=== PATIENT | male | born 1960 | race Caucasian/White ===

== ENCOUNTER 2020-02-13 13:52 | Emergency (ER) | payer OTHER, SELFPAY ==
[~2020-02-13] VITALS: Ht 157.5 cm; Wt 65.8 kg
[2020-02-13 15:10] LABS: BASOPHIL % 0.2 % (0-2); PLATELET COUNT 145 x10^3mcL (130-400); RED CELL DISTRIBUTION WIDTH 13.3 % (11.5-14.5)
[2020-02-13 15:18] LABS: CALCIUM 8.8 mg/dL (8.5-10.1); CARBON DIOXIDE 26.2 mmol/L (21-32); CHLORIDE SERUM 99 mmol/L (98-107); GFR1 > 60 mL/min; GLUCOSE SERUM 221 mg/dL (74-106); POTASSIUM SERUM 3.9 mmol/L (3.5-5.1); SODIUM SERUM 135 mmol/L (136-145)
[2020-02-13 15:20] LABS: UA SPECIFIC GRAVITY 1.025 (1.005-1.035); microscopic required? YES; urine erythrocyte NEGATIVE (NEGATIVE)
[2020-02-13 15:31] LABS: ALBUMIN 3.3 g/dL (3.4-5.0); ALKALINE PHOSPHATASE 104 U/L (46-116); ALT/SGPT 45 U/L (16-63); AST/SGOT 51 U/L (15-37); BILIRUBIN TOTAL 0.6 mg/dL (0.20-1.00); C REACTIVE PROTEIN 6.2 mg/dL (<=0.9); CHOLESTEROL 128 mg/dL (<200); HDL CHOLESTEROL 36 mg/dL (40-60); LACTIC DEHYDROGENASE (LDH) 513 U/L (100-190); LIPASE 203 IU/L (73-393); TOTAL PROTEIN, SERUM 7.3 g/dL (6.4-8.2)
[2020-02-13 15:58] LABS: AMPHETAMINE QUAL UR NONE DETECTED (See below)
[2020-02-13 16:44] VITALS: BP 114/85
== END 2020-02-13 16:39 | disposition home or self-care (01) ==
LOC: ED 13:52
PROVIDERS: Emergency Medicine
DX: U07.1 COVID-19 (principal); J12.89 Other viral pneumonia; I10 Essential (primary) hypertension; E11.9 Type 2 diabetes mellitus without complications; E78.00 Pure hypercholesterolemia, unspecified; Z98.890 Other specified postprocedural states
CPT/HCPCS: 36600; 83880; 85378; 87804

== ENCOUNTER 2020-02-14 16:43 | Inpatient (IN) | payer OTHER, SELFPAY ==
[~2020-02-14] VITALS: Ht 165.1 cm; Wt 67.6 kg
[2020-02-14 16:46] VITALS: Ht 165.1 cm; Wt 67.6 kg
--- NOTE | 2020-02-14 18:45 | NUR ---
FIRST CONTACT WITH PT. ESCORTED FROM OUT DOORS TO ROOM 8. APPARANTLY HAD LOW O2 SAT LEVELS AT HOME WITH HOME O2 SAT DEVICE. WAS ADVISED FROM PCP IF IT WAS LOW TO SEEK MEDICAL ATTN.
[2020-02-14 19:16] LABS: BASOPHIL % 0.1 % (0-2); PLATELET COUNT 182 x10^3mcL (130-400); RED CELL DISTRIBUTION WIDTH 12.9 % (11.5-14.5)
[2020-02-14 19:17] LABS: CARBON DIOXIDE 25.8 mmol/L (21-32); CHLORIDE SERUM 98 mmol/L (98-107); CREATININE SERUM 1.1 mg/dL (0.7-1.3); GFR1 > 60 mL/min; GLUCOSE SERUM 259 mg/dL (74-106); POTASSIUM SERUM 4.5 mmol/L (3.5-5.1); SODIUM SERUM 133 mmol/L (136-145)
[2020-02-14 19:21] LABS: ALKALINE PHOSPHATASE 101 U/L (46-116); ALT/SGPT 50 U/L (16-63); AST/SGOT 54 U/L (15-37); BILIRUBIN TOTAL 0.92 mg/dL (0.20-1.00); C REACTIVE PROTEIN 9.9 mg/dL (<=0.9); LACTIC DEHYDROGENASE (LDH) 527 U/L (100-190); TOTAL PROTEIN, SERUM 7.6 g/dL (6.4-8.2)
[2020-02-14 19:23] LABS: ALBUMIN 3.1 g/dL (3.4-5.0)
--- NOTE | 2020-02-14 19:30 | NUR ---
RECEIVED PATIENT AFTER BEDSIDE REPORT FROM OFF-GOING RN, RACHEL FAY. PATIENT AWAKE, ALERT, ORIENTED TIMES 4. PATIENT ABLE TO TALK BUT GETS OUT OF BREATH EASILY. PATIENT STATES HE IS COLD. A BLANKET WAS PLACED ON THE PATIENT. PATIENT VOIDED CLEAR, ASHLIE URINE IN URINAL. URINE SPECIMEN SENT TO LAB. RESTORATION ECOLOGIST SHOWS SINUS RHYTHM. INFREQUENT PVC NOTED. PULSES STRONG AND EQUAL. NS 1000 ML IV BEGUN AND ROCEPHIN 1 GM IVPB GIVEN WELL AZITHROMAX 500 MG IVPB PER MD ORDER. PATIENT TO RECEIVE SECOND LITER OF NS IV.
[2020-02-14 20:52] LABS: UA SPECIFIC GRAVITY 1.025 (1.005-1.035); microscopic required? YES; urine erythrocyte NEGATIVE (NEGATIVE)
--- NOTE | 2020-02-14 21:18 | NUR ---
PT SWABBED IN THIS ED YESTERDAY FOR COVID RON (POSITIVE RESULT) AND INFLUENZA A+B (NEGATIVE RESULT). THOSE SWABS WERE NOT REPEATED TODAY. A NOVEL MORGAN VIRUS SWAB/PCR WAS ORDERED AND OBTAINED IN THE ED TODAY.
--- NOTE | 2020-02-14 21:44 | NUR ---
PATIENT REPORT GIVEN TO GURU CRAWFORD ON TELEMETRY FLOOR.
--- NOTE | 2020-02-14 22:15 | NUR ---
RECEIVED PT FROM ED VIA [facility]GEL[facility]O, CAME IN DUE TO SOB AND WEAKNESS. AAOX4. DENIES HEADACHE/DIZZINESS. ABLE TO FOLLOW COMMANDS. SOB NOTED ON MINIMAL EXERTION. LUNG SOUNDS DIMINISHED ON AUSCULTATION, O2 SAT=96% ON 2LPM/NC. RR=36. SHALLOW BREATHING. STATED THAT HE HAS PRODUCTIVE COUGH, ABLE TO EXPECTORATE SCANT AMOUNT OF WHITE PHLEGM. DENIES CHEST PAIN/PRESSURE, SR ON THE MONITOR. DENIES ABDOMINAL DISCOMFORT. VOIDS. IV SITE PATENT AND INTACT. SIDE RAILS UPX2. CALL LIGHT ON REACH. ENDORSED TO PRIMARY NURSE MAMTA FOR CONTINUITY OF CARE
--- NOTE | 2020-02-14 22:45 | NUR ---
RECEIVED REPORT FROM ABRAHAM. PT SEEN RESTING IN BED AT THIS TIME. AAOX4. DENIES HEADACHE/DIZZINESS. ABLE TO FOLLOW COMMANDS. SOB NOTED ON MINIMAL EXERTION. PT HAS SHALLOW AND EVEN BREATHING, ON 2LPM/NC. RR 36. PT REPORTED PRODUCTIVE COUGH, ABLE TO EXPECTORATE SCANT AMOUNT OF WHITE PHLEGM. DENIES CHEST PAIN/PRESSURE, SR ON THE MONITOR.PULSES PALPABLE. NO EDEMA NOTED. GENERALIZED WEAKNES NOTED. VOIDS FREELY. IV SITE PATENT AND INTACT. CALL LIGHT WITHIN REACH. BED IN LOWEST POSITION. WILL CONTINUE TO MONITOR.
[2020-02-14 22:46] VITALS: BP 129/75
--- NOTE | 2020-02-15 02:00 | NUR ---
PT SEEN SLEEPING COMFORTABLY AT THIS TIME. NO SIGNS OF ACUTE DISTRESS NOTED. RR EVEN AND UNLABORED ON NC 2LNC. NO C/O PAIN OR DISCOMFORT AT THIS TIME. CALL LIGHT WITHIN REACH. PROVIDED PT WITH WARM BLANKETS. WILL CONTINUE TO MONITOR.
[2020-02-15 04:35] VITALS: BP 108/71
[2020-02-15 04:42] VITALS: BP 117/79
--- NOTE | 2020-02-15 06:00 | NUR ---
EXPLAINED AND INSTRUCTED USE, IMPORATNCE AND FREQUENCY USE OF INCENTIVE SPIROMETER. PATIENT WAS ABLE TO PULL 800ML BUT ADVISED TO INCREASE BY 300ML DAILY UNTIL ACHIEVES 2000ML OR BETTER.
--- NOTE | 2020-02-15 06:31 | NUR ---
PT SLEEPING COMFORTABLY IN BED. NO SIGNS OF ACUTE DISTRESS NOTED. RR EVEN AND UNLABORED ON 2L NC, SATURATION 100%. NO C/O PAIN OR DISCOMFORT. IV PATENT AND INTACT. CALL LIGHT WITHIN REACH. RT AT BEDSIDE. WILL ENDORSE CARE TO ONCOMING SHIFT NURSE.
--- NOTE | 2020-02-15 07:51 | NUR ---
Nutrition Note Nursing Trigger received "Admitted with potential risk diagnosis" Pt admitted with severe sepsis, bilateral COVID PNA, Hypoxia per ER documentations on 02/13. Pt does not meet high risk criteria per nutrition care policy and standards. Pt will be assessed as moderate risk and initial assessment due 02/17-
[2020-02-15 07:54] LABS: BASOPHIL % 0.2 % (0-2); PLATELET COUNT 179 x10^3mcL (130-400); RED CELL DISTRIBUTION WIDTH 12.9 % (11.5-14.5)
[2020-02-15 08:38] VITALS: BP 120/77
--- NOTE | 2020-02-15 08:48 | NUR ---
AT 0750 - RECEIVED PATIENT FROM NIGHT NURSE. AWAKE, ALERT AND ORIENTED X 4. RESPIRATIONS REGULAR. ON 2L O2 VIA NC. O2 SAT 97%. SAT UP IN BED FOR BREAKFAST. IV SALINE LOCKED. AFEBRILE AT THIS TIME. AT 0840 - RETURNED CALL TO PATIENT'S DAUGHTER LISSET DE LOS SANTOS. UPDATED ON PATIENT CONDITION AND PLAN OF CARE.
[2020-02-15 12:37] VITALS: BP 117/75
--- NOTE | 2020-02-15 13:04 | NUR ---
AT 1230 - SEEN BY DR BIRD. DR SPOKE WITH PATIENT ABOUT PLAN OF TREATMENT. PATIENT EXPRESSED CONCERN THAT HE SOMETIMES GETS ANXIETY. PATIENT HAS ATIVAN PRN.
--- NOTE | 2020-02-15 13:09 | NUR ---
HAS BEEN COMMENCED ON DECADRON. FIRST DOSE ADMINISTERED PER EMAR.
--- NOTE | 2020-02-15 14:30 | NUR ---
RECEIVED CALL FROM PATIENT'S DAUGHTERLISSET. UPDATED ON PATIENT AND CURRENT PLAN OF CARE.
--- NOTE | 2020-02-15 15:27 | NUR ---
PATIENT SET UP WITH EXTENSION OXYGEN TUBING SO THAT PATIENT CAN AMBULATE TO BATHROOM. REMAINS ON 2L O2 VIA NC. O2 SAT 95%
[2020-02-15 17:03] VITALS: BP 133/81
--- NOTE | 2020-02-15 18:33 | NUR ---
AT 1700 - SEEN BY DR FERGUSON. RECEIVED ORDERS TO TRANSFUSE 2 UNITS CONVALESCENT PLASMA. PATIENT ALSO TO RECEIVE COURSE OF REMDESEVIR. AT 1745 - SPOKE WITH PATIENT USING [employer] TELEPHONE LEATHER SORTER, ID # [id number] SADE. ALSO SPOKE WITH PATIENT'S DAUGHTER, LISSET. BOTH PAITENT AND DAUGHTER VERBALIZED AGREEMENT WITH PLANNED TREATMENT. PATIENT SIGNED CONSNET FORMS. AT 1800 - VSS. AFEBRILE. REMAINS ON 2L O2 VIA NC. O2 SAT 98%. TAKING FLUIDS PO. VOIDING IN URINAL AND BATHROOM. WILL ENDORSE CARE TO NIGHT NURSE.
[2020-02-15 21:07] VITALS: BP 126/95
--- NOTE | 2020-02-15 22:00 | NUR ---
@2200 PT REQUESTED ATIVAN AROUND 2145 FOR ANXIETY; NOT IN RESP DISTRESS; KEPT CALL LIGHT IN REACH.
--- NOTE | 2020-02-16 04:29 | NUR ---
0400 # 1 CONVALESCENT PLASMA TRAANSFUSED; BT WELL TOLERATED; DENIES ANY DISCOMFORT.
[2020-02-16 06:00] VITALS: BP 124/73
--- NOTE | 2020-02-16 06:50 | NUR ---
0600 DENIES ANY DISCOMFORT; NOT IN RESP DISTRESS; BLOOD SUGAR NO COVERAGE
[2020-02-16 08:18] LABS: ALKALINE PHOSPHATASE 71 U/L (46-116); ALT/SGPT 37 U/L (16-63); AST/SGOT 34 U/L (15-37); BILIRUBIN DIRECT 0.32 mg/dL (0.0-0.2); BILIRUBIN TOTAL 1.06 mg/dL (0.20-1.00); CALCIUM 8.8 mg/dL (8.5-10.1); CARBON DIOXIDE 25.3 mmol/L (21-32); CHLORIDE SERUM 103 mmol/L (98-107); CREATININE SERUM 0.8 mg/dL (0.7-1.3); GFR1 > 60 mL/min; GLUCOSE SERUM 130 mg/dL (74-106); MAGNESIUM 2.1 mg/dL (1.8-2.4); POTASSIUM SERUM 3.9 mmol/L (3.5-5.1); SODIUM SERUM 138 mmol/L (136-145); TOTAL PROTEIN, SERUM 6.5 g/dL (6.4-8.2)
[2020-02-16 08:24] LABS: ALBUMIN 2.6 g/dL (3.4-5.0)
--- NOTE | 2020-02-16 09:20 | NUR ---
PATIENT RESTING IN BED, SITTING UP. A0X4. RECEIVED MORNING MEDS. PATIENT STATED FEELING BETTER THIS MORNING.VITALS ARE STABLE. DESATING 97% ON NC 2L. CAME IN AND TURNED OFF 02 TO SEE HOW PATEINT DOES ON RA. WILL CONTINUE MONITORING. NO PAIN OR DISCOMFORT AT THIS TIME. CHEST RISING SYMETRICALLY.
[2020-02-16 09:23] VITALS: BP 120/80
[2020-02-16 09:57] LABS: BASOPHIL % 0.3 % (0-2); PLATELET COUNT 223 x10^3mcL (130-400); RED CELL DISTRIBUTION WIDTH 12.8 % (11.5-14.5)
[2020-02-16 12:33] VITALS: BP 128/87
--- NOTE | 2020-02-16 14:57 | NUR ---
[place] RESTING IN BED. O2 HAS BEEN 98%-100% ROOM AIR. VITAL SIGNS ARE STABLE. PATIENT HAS NO COMPLAINTS OF RESP DISTRESS OR PAIN. PATIENT STATED HE FEELS FINE BUT WE ARE WAITING FOR THE 2ND UNIT OF PLASMA TO BE READY IN ORDER TO TRANSFUSE IT PER DRS ORDER.
[2020-02-16] MEDS ORDERED: VENTOLIN H0.09 MG/A1 INH (15:46)
[2020-02-16] MEDS ORDERED: ELIQUIS5 MG PO (15:47)
[2020-02-16] MEDS ORDERED: DEC10I PO (15:48)
[2020-02-16] MEDS ORDERED: METFORMIN HCL1000 MG PO (15:48)
[2020-02-16] MEDS ORDERED: TES100 PO (15:49)
[2020-02-16] MEDS ORDERED: LIPI20 PO (15:49)
[2020-02-16 17:26] VITALS: BP 128/87
--- NOTE | 2020-02-16 18:09 | NUR ---
FIRST RENDEZEVIR WAS HUNG AT 1745
--- NOTE | 2020-02-16 18:48 | NUR ---
PATIENT IN BED RESTING. RENDEZEVIR RUNNING. BED LOW, CALL LIGHT AT REACH. VS STABLE. BLOOD BANK CALLED, PLASMA IS READY NOW. WILL ENDORSE TO [facility]. NO C/O PAIN OR DISCOMFORT. ALL NEEDS MET FOR NOW.
--- NOTE | 2020-02-16 20:00 | NUR ---
PATIENT RECEIVED AWAKE, ALERT, ORIENTED X4 IN BED. RESPIRATION EVEN AND UNLABORED, BREATH SOUNDS DIMINISHED,, ON O2 2L PER NASAL CANNULA, +PRODUCTIVE COUGH, ON DROPLET PRECAUTION. DENIES GI DISCOMFORT, LBM 12. VOIDING FREELY WITHOUT DIFFICULTY. AMBULATORY. SKIN DRY AND INTACT. ON TELE #[phone]. FOR CONVALESCENT PLASMA TRANSFUSION. PLACED CALL LIGHT WITHIN REACH. WILL CONTINUE TO MONITOR.
[2020-02-16 21:19] VITALS: BP 115/82
--- NOTE | 2020-02-16 22:40 | NUR ---
CONVALESCENT PLASMA STARTED. PRE TRANSFUSION VITAL SIGNS FOLLOWS BP 115/82, HR 85, RR 18, TEMP 98.1, O2 SAT 96% WILL MONITOR FOR ANY REACTION.
--- NOTE | 2020-02-16 23:00 | NUR ---
COMPLETED CONVALESCENT PLASMA TRANSFUSION. POST TRANSFUSION VITAL SIGNS WITHIN NORMAL LIMITS. NO REACTION NOTED. WILL CONTINUE TO MONITOR.
--- NOTE | 2020-02-17 01:46 | NUR ---
PATIENT CAN'T SLEEP, APPEARS RESTLESS, ANXIOUS. ATIVAN 0.5 MG PO GIVEN ORDERED. WILL CONTINUE TO MONITOR
[2020-02-17 05:54] VITALS: BP 136/83
[2020-02-17 07:36] LABS: BILIRUBIN DIRECT 0.23 mg/dL (0.0-0.2); BILIRUBIN TOTAL 0.74 mg/dL (0.20-1.00); TOTAL PROTEIN, SERUM 6.4 g/dL (6.4-8.2)
[2020-02-17 07:38] LABS: ALBUMIN 2.7 g/dL (3.4-5.0)
[2020-02-17 08:19] VITALS: BP 134/80
--- NOTE | 2020-02-17 09:22 | NUR ---
PATIENT DRESSED IN HIS NORMAL CLOTHES IN BED, AOX4, KYRGYZ SPEAKING. PATIENT STATES FEELING GOOD. VITALS ARE STABLE. PATIENT DESATING 99% ON ROOM AIR. NO COMPLAINTS OF RESP DISTRESS OR PAIN AT THIS TIME. MORNING MEDS GIVEN. ALL NEEDS MET.
[2020-02-17 16:13] VITALS: BP 121/84
--- NOTE | 2020-02-17 18:45 | NUR ---
PATIENT HAS BEEN READY TO LEAVE SINCE NOON. REMOVED IV AND INK BLENDER. PATIENT TRIED TO LEAVE 2 TIMES AMA STATING HE WANTED TO GO HOME. PATIENT WAS EXPLAINED ON THE IMPORTANCE OF WAITING UNTIL DR GAVE DC ORDERS. PATIENT AGREED TO WAIT. PATIENT REFUSED EVENING MEDS. PATIENT STILL TRYIN GOT GO HOME BUT PATIENT WAS TOLD BY LICENSED NURSING ASSISTANT WE WERE WAITING FOR HIS HOME O2 OXYGEN TO GET DELIVERED.
[2020-02-17 19:36] VITALS: BP 121/84
== END 2020-02-17 19:50 | disposition home or self-care (01) | DRG 871 ==
LOC: ED 16:43 → DU 20:09
PROVIDERS: Internal Medicine Pulmonary Disease; Specialist; ADMIT Hospitalist; ATTEND Internal Medicine Infectious Disease
PROC: XW13325 Transfusion of Convalescent Plasma (Nonautologous) into Peripheral Vein, Percutaneous Approach, New Technology Group 5 (ICD-10-PCS; principal; 2020-02-16)
PROC: XW033E5 Introduction of Remdesivir Anti-infective into Peripheral Vein, Percutaneous Approach, New Technology Group 5 (ICD-10-PCS; 2020-02-16)
DX: A41.9 Sepsis, unspecified organism (principal); U07.1 COVID-19; J12.89 Other viral pneumonia; J96.01 Acute respiratory failure with hypoxia; E11.9 Type 2 diabetes mellitus without complications; I10 Essential (primary) hypertension; E78.00 Pure hypercholesterolemia, unspecified; I25.2 Old myocardial infarction; R65.20 Severe sepsis without septic shock; I25.10 Atherosclerotic heart disease of native coronary artery without angina pectoris
CPT/HCPCS: 36600; 82962; 83880; 85378; 87804; 94150; G0378; J0456; J0696; J1100; J3535; J7050; U0003